=== PATIENT | female | born 1990 | race Caucasian/White ===

== ENCOUNTER 2019-08-31 20:37 | Emergency (ER) | payer SELFPAY ==
[2019-08-31] MEDS ORDERED: DOXYCYCLINE HYCLATE 100 MG TABLET PO ONE (21:56)
--- NOTE | 2019-08-31 22:11 | ER Document Report ---
ED Animal Bite - General Chief Complaint: Cat Bite Stated Complaint: CAT BITE ON RIGHT HAND Time Seen by Provider: 08/31/19 21:15 Mode of Arrival: Ambulatory Information source: Patient Notes: 29-year-old female past medical history significant for asthma presents to the emergency room with cat bites to her right hand, right fifth finger, left thumb, left hand. States it happened around 10 AM this morning. States she did clean on the wounds with alcohol, soap and water, came to the emergency room for increased redness and swelling tonight. Denies fevers, denies any discharge or draining from the wounds. Denies any axillary lymphadenopathy. States it is a stray cat that she has been feeding for the past 2 months. States she is taking care of 2 kittens that they cat recently had as well. States the cat got spooked by her dog she went to try to move the cat when the cat bit her. States her vaccines are up-to-date. Even though it is a stray cat she states it is a known neighbor cat she just does not know who is the actual local owner operator truck driver's no other medications for symptoms. Denies . No ill contacts, no COVID-19 exposure TRAVEL OUTSIDE OF THE [place] IN LAST 30 DAYS: No - Related Data Allergies/Adverse Reactions: acetaminophen [From Tylenol] Allergy (Verified 11/05/13 19:01) amoxicillin trihydrate [From Augmentin] Allergy (Verified 11/05/13 19:01) budesonide [From Symbicort] Allergy (Verified 11/05/13 19:01) cefazolin [Cefazolin] Allergy (Verified 11/05/13 19:01) formoterol fumarate [From Symbicort] Allergy (Verified 11/05/13 19:01) Penicillins Allergy (Verified 11/05/13 19:01) Potassium Clavulanate * [From Augmentin] Allergy (Verified 11/05/13 19:01) Past Medical History - General Information source: Patient - Social History Smoking Status: Former Smoker Frequency of alcohol use: None Drug Abuse: None Family History: Reviewed & Not Pertinent Patient has homicidal ideation: No Pulmonary Medical History: Reports: Hx Asthma - Immunizations Immunizations up to date: Yes Hx Diphtheria, Pertussis, Tetanus Vaccination: Yes Review of Systems - Review of Systems Constitutional: No symptoms reported Physical Exam - Vital signs Vitals: Temp Pulse Resp BP Pulse Ox 98.3 F 72 16 125/89 H 100 08/31/19 20:42 08/31/19 20:42 08/31/19 20:42 08/31/19 20:42 08/31/19 20:42 - General General appearance: Appears well, Alert In distress: Mild - HEENT Head: Normocephalic, Atraumatic Eyes: Normal Pupils: PERRL - Respiratory Respiratory status: No respiratory distress Chest status: Nontender Breath sounds: Normal Chest palpation: Normal - Cardiovascular Rhythm: Regular Heart sounds: Normal auscultation Murmur: No - Extremities Hand: Tender, Abrasion, Swelling - Full range of motion with all digits to bilateral hands. There are puncture wounds noted to the distal aspect of the right fifth finger as well as the dorsal aspect of the right hand. There are also puncture wounds noted to the left thumb and dorsal aspect of the left thumb. Tender but not warm to palpation. No active discharge or draining noted. Notes: No axillary lymphadenopathy noted bilaterally - Neurological Neuro grossly intact: Yes Cognition: Normal Orientation: AAOx4 Hubbell Coma Scale Eye Opening: Spontaneous Alessio Coma Scale Verbal: Oriented Hubbell Coma Scale Motor: Obeys Commands Hubbell Coma Scale Total: 15 Speech: Normal Motor strength normal: LUE, RUE, LLE, RLE Sensory: Normal Notes: Positive radial pulses bilaterally. Capillary refill less than 3 seconds bilaterally. - Skin Skin Temperature: Warm Skin Moisture: Dry Skin Color: Erythema Skin irregularity: Erythema, other - Puncture wounds Location of irregularity: Extremities Irregularity with: Swelling, Tenderness. negative: Warmth Notes: There are puncture wounds noted to the distal aspect of the right fifth finger as well as the dorsal aspect of the right hand. There are also puncture wounds noted to the left thumb and dorsal aspect of the left thumb. Tender but not warm to palpation. No active discharge or draining noted. Course - Re-evaluation Re-evalutation: 08/31/19 22:12 Patient is afebrile, nontoxic-appearing, no axillary lymphadenopathy noted. No red streaking. Patient was counseled on proper wound care. Antibiotics as prescribed. Patient is allergic to Augmentin therefore will be prescribing doxycycline as recommended by the CDC guidelines. return as needed for pain. Given strict return to the emergency room guidelines. Return for any new or worsening symptoms, all questions were answered. Patient verbalized understanding and agrees with plan of care. 08/31/19 22:16 - Vital Signs Vital signs: Temp Pulse Resp BP Pulse Ox 97.6 F 64 16 107/76 99 08/31/19 22:24 08/31/19 22:24 08/31/19 22:24 08/31/19 22:24 08/31/19 22:24 Discharge - Discharge Clinical Impression: Cat bite of hand Qualifiers: Encounter type: initial encounter Laterality: right Qualified Code(s): S61.451A - Open bite of right hand, initial encounter Cat bite of left hand Qualifiers: Encounter type: initial encounter Qualified Code(s): S61.452A - Open bite of left hand, initial encounter Condition: Stable Disposition: HOME, SELF-CARE Instructions: Animal Bites ([facility]), Cat Scratch Fever ([facility]) Additional Instructions: Soak hands in warm water 20 minutes 3 times a day. Antibiotics as prescribed. Motrin for pain. Return for any new or worsening symptoms. Prescriptions: Doxycycline Monohydrate 100 mg PO BID #20 capsule Forms: Return to Work
[2019-08-31 22:33] VITALS: BP 107/76
== END 2019-08-31 22:33 | disposition home or self-care (01) ==
LOC: ER 20:37
DX: S61.451A Open bite of right hand, initial encounter (principal); S61.452A Open bite of left hand, initial encounter; W55.01XA Bitten by cat, initial encounter; Z88.0 Allergy status to penicillin; Z88.6 Allergy status to analgesic agent
CPT/HCPCS: 99283